=== PATIENT | female | born 1950 | race Caucasian/White ===

== ENCOUNTER → 2019-02-23 12:00 | Outpatient (CLI) | payer OTHER, SELFPAY | PROVIDERS: PCP Student in an Organized Health Care Education/Training Program; Visit Provider Student in an Organized Health Care Education/Training Program | DX: Z12.31 Encounter for screening mammogram for malignant neoplasm of breast (principal); Z53.9 Procedure and treatment not carried out, unspecified reason ==

== ENCOUNTER → 2019-03-17 11:53 | Outpatient (CLI) | payer OTHER, SELFPAY ==
--- NOTE | 2019-03-17 | DI.MG.S_ITS ---
BILATERAL DIGITAL SCREENING MAMMOGRAM 3D/2D WITH CAD: 03/17/2019 CLINICAL: Routine screening. Comparison is made to exams dated: 06/09/2017 mammogram, 02/22/2015 mammogram - [facility], and 11/30/2012 mammogram - [facility]. The tissue of both breasts is heterogeneously dense. This may lower the sensitivity of mammography. Current study was also evaluated with a Computer Aided Detection (CAD) system. No significant masses, calcifications, or other findings are seen in either breast. There has been no significant interval change. IMPRESSION: NEGATIVE There is no mammographic evidence of malignancy. A 1 year screening mammogram is recommended. This exam was interpreted at Station ID: [id number]. NOTE: For mammograms, a report in lay terms will be sent to the patient. Approximately 15% of breast malignancies will not be visualized mammographically. In the management of a palpable breast mass, a negative mammogram must not discourage biopsy of a clinically suspicious lesion. Electronically Signed By: Catarina yoo/radha:03/17/2019 15:01:41 copy to: CORA BAILEY letter sent: Normal Exam ACR BI-RADS Category 1: Negative 3341F
== END ==
PROVIDERS: PCP Student in an Organized Health Care Education/Training Program; Visit Provider Student in an Organized Health Care Education/Training Program
DX: Z12.31 Encounter for screening mammogram for malignant neoplasm of breast (principal)
CPT/HCPCS: 77063; 77067

== ENCOUNTER → 2019-09-29 14:03 | Outpatient (CLI) | payer OTHER, SELFPAY | PROVIDERS: PCP Student in an Organized Health Care Education/Training Program; Referring Provider Student in an Organized Health Care Education/Training Program; Visit Provider Student in an Organized Health Care Education/Training Program | DX: M85.852 Other specified disorders of bone density and structure, left thigh (principal); Z78.0 Asymptomatic menopausal state | CPT/HCPCS: 77080 ==

== ENCOUNTER → 2020-04-05 15:43 | Outpatient (CLI) | payer OTHER, SELFPAY ==
--- NOTE | 2020-04-05 | DI.MG.S_ITS ---
BILATERAL DIGITAL SCREENING MAMMOGRAM 3D/2D WITH CAD: 04/05/2020 CLINICAL: Routine screening. Comparison is made to exams dated: 03/17/2019 mammogram, 06/09/2017 mammogram, and 02/22/2015 mammogram - [facility]. The tissue of both breasts is heterogeneously dense. This may lower the sensitivity of mammography. Current study was also evaluated with a Computer Aided Detection (CAD) system. No significant masses, calcifications, or other findings are seen in either breast. There has been no significant interval change. IMPRESSION: NEGATIVE There is no mammographic evidence of malignancy. A 1 year screening mammogram is recommended. This exam was interpreted at Station ID: [id number]. NOTE: For mammograms, a report in lay terms will be sent to the patient. Approximately 15% of breast malignancies will not be visualized mammographically. In the management of a palpable breast mass, a negative mammogram must not discourage biopsy of a clinically suspicious lesion. Electronically Signed By: Huy Espino M.D., jr/radha:04/05/2020 16:59:18 copy to: CORA BAILEY letter sent: Normal Exam ACR BI-RADS Category 1: Negative 3341F
== END ==
PROVIDERS: PCP Student in an Organized Health Care Education/Training Program; Referring Provider Student in an Organized Health Care Education/Training Program; Visit Provider Student in an Organized Health Care Education/Training Program
DX: Z12.31 Encounter for screening mammogram for malignant neoplasm of breast (principal)
CPT/HCPCS: 77063; 77067

== ENCOUNTER → 2021-07-17 15:36 | Outpatient (CLI) | payer OTHER, SELFPAY ==
--- NOTE | 2021-07-17 15:38 | DI.MG.S_ITS ---
BILATERAL DIGITAL SCREENING MAMMOGRAM 3D/2D WITH CAD: 07/17/2021 CLINICAL: Routine screening. Comparison is made to exams dated: 04/05/2020 mammogram, 03/17/2019 mammogram, and 06/09/2017 mammogram - [facility]. The tissue of both breasts is heterogeneously dense. This may lower the sensitivity of mammography. Current study was also evaluated with a Computer Aided Detection (CAD) system. No significant masses, calcifications, or other findings are seen in either breast. There has been no significant interval change. IMPRESSION: NEGATIVE There is no mammographic evidence of malignancy. A 1 year screening mammogram is recommended. This exam was interpreted at Station ID: [id number]. NOTE: For mammograms, a report in lay terms will be sent to the patient. Approximately 15% of breast malignancies will not be visualized mammographically. In the management of a palpable breast mass, a negative mammogram must not discourage biopsy of a clinically suspicious lesion. Electronically Signed By: Catarina yoo/radha:07/18/2021 12:21:29 copy to: CORA BAILEY letter sent: Normal Exam ACR BI-RADS Category 1: Negative 3341F
== END ==
PROVIDERS: PCP Student in an Organized Health Care Education/Training Program; Referring Provider Student in an Organized Health Care Education/Training Program; Visit Provider Student in an Organized Health Care Education/Training Program
DX: Z12.31 Encounter for screening mammogram for malignant neoplasm of breast (principal)
CPT/HCPCS: 77063; 77067

== ENCOUNTER → 2021-08-15 11:45 | Outpatient (CLI) | payer OTHER, SELFPAY ==
[2021-08-15 12:36] LABS: COVID19 -Nasal RAPID Negative (Negative)
== END ==
PROVIDERS: PCP Student in an Organized Health Care Education/Training Program; Referring Provider Student in an Organized Health Care Education/Training Program; Visit Provider Student in an Organized Health Care Education/Training Program
DX: Z20.822 Contact with and (suspected) exposure to COVID-19 (principal)
CPT/HCPCS: 87635; C9803

== ENCOUNTER 2021-08-17 11:50 | Day surgery (SDC) | payer OTHER, SELFPAY ==
--- NOTE | 2021-08-17 | PATH_ITS ---
[facility] Accession Number: [id number] . 01 Material submitted: . sigmoid colon - SIGMOID COLON POLYP . 01 Diagnosis: Sigmoid Colon, Polyp, Biopsy: Hyperplastic polyp. Additional levels were examined. MRV 08/23/2021 1621 Local . 01 Electronically signed: . Jessica Felder MD, Pathologist NPI- [id number] . 01 Gross description: . SIGMOID COLON POLYP: Received in formalin are 2 fragment(s) of pedraza, soft tissue measuring 0.1 x 0.1 x 0.1 cm to 0.3 x 0.2 x 0.2 cm submitted entirely in 1 cassette(s) /MICHAEL 08/20/2021 1910 Local . 01 Pathologist provided ICD-10: K63.5 . 01 CPT . 420410 Specimen Comment: A courtesy copy of this report has been sent to [phone] Performed at: 01 [facility] [address] [place] [address] [address], [place], [place] [id number] MD Robert Valentin MD Phone: [phone]
[2021-08-17 12:01] VITALS: BP 150/88; PULSE 77; RESP 20; TEMP 36.4; O2SAT 98; BMI 25.7
--- NOTE | 2021-08-17 12:02 | P.HP_ITS ---
History of Present Illness History of Present Illness Date Patient Seen: 08/17/21 Chief complaint: SCREENING COLONOSCOPY Narrative: 70 year old female comes in today for consideration of a screening colonoscopy. Last colonoscopy in 2005, indicated for family history of colon cancer and colon polyps. However, patient reports that it is more of a family history of colitis rather than colon cancer or polyps. Findings showed a rectal polyp and mild diverticulosis in the ascending colon. Pathology not available at time of dictation. There have been no lower GI symptoms suggesting disease such as change in bowel habits, bleeding, abdominal pain or anemia. Overall health issues have been stable, including no major cardiac events for at least 6 weeks. PCP: Dr. Locke Past Medical History: HYPERLIPIDEMIA Herpes simplex Tinnitus OSTEOPENIA History of colon polyps Past Surgical History: Tonsillectomy Foot surgery Colonoscopy, 2005 Family History: Colitis Social History: Marital Status: Children: Ester(1971), Bar(1977) Occupation: Retired from [employer] Private Household Members: Jesus Brannon() Meds Home Medications and Allergies Allergies Allergy/AdvReac Type Severity Reaction Status Date / Time blue cheese Allergy Unknown Uncoded 08/17/21 12:01 Review of Systems Review of Systems Narrative: All remaining ROS were reviewed and negative except as addressed. Exam Narrative Exam Narrative: GENERAL: Alert and oriented, appearing stated age and in no acute distress. HEENT: Head normocephalic/atraumatic. Extraocular movements intact. LUNGS: Clear to ausculation bilaterally, no wheezes, rhonchi or rales. CV: Normal S1 and S2 with regular rate and rhythm, no audible murmurs, rubs or gallops. ABDOMEN: Soft, non-tender, non-distended, no organomegaly. Positive bowel sounds. EXTREMITIES: No clubbing, cyanosis, or edema. NEURO: Cranial nerves II through XII grossly intact, no focal deficits. PSYCH: Alert and oriented x 3. SKIN: No concerning lesions. Assessment & Plan Assessment & Plan narrative: 1. History of colon polyps 2. Screening for colon cancer Plan for colonoscopy. The nature and character of the procedure as well as anticipated results were discussed. The possibility of not completing the procedure was also discussed. Possible complications including aspiration pneumonia, bleeding, perforation and reaction to medications either for sedation or preparation and missed lesions were discussed. Questions were answered and proceeding to the colonoscopy was elected. Informed consent signed.
--- NOTE | 2021-08-17 12:11 | PM.OP.COLON ---
Procedure Notes SCOAP/Timeout: 1:12 p.m. Procedure in detail: ENDOSCOPIST: Yaima Locke MD Sedation RN: Roselyn Vázquez RN Sedation start time: 1:13 p.m. Sedation end time: 1:36 p.m. PROCEDURE: Colonoscopy with cold biopsy INDICATIONS: 1. History of colon polyps 2. Family history of colon cancer colon polyps 3. Screening for colon cancer MEDICATION: Levsin 0.125 mg sublingual, incremental doses of Versed and fentanyl until appropriate level sedation achieved. ASA CLASS: 2 CECAL WITHDRAWAL TIME: 9 minutes COMPLICATIONS: None. EXTENT OF PROCEDURE: Cecum. QUALITY OF PREP: Good with portions of liquid stool. PROCEDURE: Prior to insertion of the colonoscope, a digital rectal examination was accomplished with circumferential palpation of the distal rectal mucosa without significant findings being noted. The high-definition pediatric colonoscope was passed into the rectum in the usual fashion and advanced over to the cecum without difficulty. The ileocecal valve, appendiceal stoma, and medial wall all could be inspected and no abnormalities were seen. ASCENDING COLON: As the colonoscope was withdrawn, care was taken to expose and inspect the haustral folds and minor diverticulosis seen. HEPATIC FLEXURE: Normal, no polyps, diverticula or other abnormalities. TRANSVERSE COLON: Normal, no polyps, diverticula or other abnormalities. DESCENDING COLON: Normal, no polyps, diverticula or other abnormalities. SIGMOID COLON: A 3 mm polyp was seen and removed with cold biopsy forceps. Otherwise, no diverticula or other abnormalities. RECTUM: Normal. J maneuver was produced. There was no significant perianal disease. The J maneuver was broken. The remainder of the rectum was inspected and there was minus external hemorrhoid disease. The scope was withdrawn. IMPRESSION: 1. Sigmoid polyp x1, 3 mm, removed with cold biopsy forceps 2. Diverticulosis, ascending PLAN: 1. Follow-up in clinic status post pathology results. The possibility of a missed lesion including a malignancy has been discussed with the patient previously. Potential alarm symptoms have been discussed and should be reported immediately.
[2021-08-17] MEDS: LACTATED RINGERS 1,000 ML 200 ML IV (12:16)
[2021-08-17] MEDS: HYOSCYAMINE 0.125 MG TABLET PO (12:20)
[2021-08-17] MEDS: fentaNYL 250 MCG/5 ML INJ 150 MCG IV (13:37)
[2021-08-17] MEDS: MIDAZOLAM 5 MG/5 ML VIAL IV (13:38)
[2021-08-17 13:42] VITALS: BP 114/76; PULSE 66; RESP 13; TEMP 36.3; O2SAT 95
[2021-08-17 13:47] VITALS: BP 123/81; PULSE 67; RESP 14; O2SAT 95
[2021-08-17 13:52] VITALS: BP 124/80; PULSE 59; RESP 12; O2SAT 93
[2021-08-17 13:57] VITALS: BP 132/82; PULSE 60; RESP 14; TEMP 36.2; O2SAT 95
[2021-08-17 14:30] VITALS: BP 122/86; PULSE 62; RESP 16; TEMP 36.7; O2SAT 96
== END 2021-08-17 14:46 | disposition home or self-care (01) ==
PROVIDERS: PCP Student in an Organized Health Care Education/Training Program; Referring Provider Student in an Organized Health Care Education/Training Program; Visit Provider Student in an Organized Health Care Education/Training Program
PROC: 0DJD8ZZ Inspection of Lower Intestinal Tract, Via Natural or Artificial Opening Endoscopic (ICD-10-PCS; CPT 45378; principal; 2021-08-17 13:00)
DX: Z12.11 Encounter for screening for malignant neoplasm of colon (principal); Z86.010 Personal history of colon polyps; Z80.0 Family history of malignant neoplasm of digestive organs; K57.30 Diverticulosis of large intestine without perforation or abscess without bleeding; K63.5 Polyp of colon
CPT/HCPCS: 45380; J2250; J3010

== ENCOUNTER → 2021-09-17 14:38 | Outpatient (CLI) | payer OTHER, SELFPAY | PROVIDERS: PCP Student in an Organized Health Care Education/Training Program; Referring Provider Internal Medicine; Visit Provider Internal Medicine | DX: M85.852 Other specified disorders of bone density and structure, left thigh (principal); M85.851 Other specified disorders of bone density and structure, right thigh; Z78.0 Asymptomatic menopausal state | CPT/HCPCS: 77080 ==

== ENCOUNTER → 2022-07-25 13:18 | Outpatient (CLI) | payer OTHER, SELFPAY ==
--- NOTE | 2022-07-25 | DI.MG.S_ITS ---
BILATERAL DIGITAL SCREENING MAMMOGRAM 3D/2D WITH CAD: 07/25/2022 CLINICAL: Routine screening. Comparison is made to exams dated: 07/17/2021 mammogram, 04/05/2020 mammogram, and 03/17/2019 mammogram - [facility]. Both breasts are heterogeneously dense, which may obscure small masses (category c / 51-75% glandular tissue). Current study was also evaluated with a Computer Aided Detection (CAD) system. No significant masses, calcifications, or other findings are seen in either breast. There has been no significant interval change. IMPRESSION: NEGATIVE There is no mammographic evidence of malignancy. A 1 year screening mammogram is recommended. Based on the Tyrer Cuzick model (a risk assessment model) the patient's lifetime risk is 5.7% and her 10 year risk is 3.3%. According to the ACR, ACS, and NCCN guidelines, an annual breast MRI exam along with mammogram is recommended if the patient's lifetime risk is 20% or greater. This exam was interpreted at Station ID: [id number]. NOTE: For mammograms, a report in lay terms will be sent to the patient. Approximately 15% of breast malignancies will not be visualized mammographically. In the management of a palpable breast mass, a negative mammogram must not discourage biopsy of a clinically suspicious lesion. Electronically Signed By: Mart ledesma/radha:07/25/2022 14:03:34 copy to: CORA BAILEY letter sent: Normal Exam ACR BI-RADS Category 1: Negative 3341F
== END ==
PROVIDERS: PCP Student in an Organized Health Care Education/Training Program; Referring Provider Internal Medicine; Visit Provider Internal Medicine
DX: Z12.31 Encounter for screening mammogram for malignant neoplasm of breast (principal)
CPT/HCPCS: 77063; 77067

== ENCOUNTER → 2023-03-22 14:42 | Outpatient (CLI) | payer OTHER, SELFPAY | PROVIDERS: PCP Student in an Organized Health Care Education/Training Program; Visit Provider Nurse Practitioner Family | DX: N39.0 Urinary tract infection, site not specified (principal) | CPT/HCPCS: 87077; 87086; 87186 ==

== ENCOUNTER → 2023-07-31 13:15 | Outpatient (CLI) | payer OTHER, SELFPAY ==
--- NOTE | 2023-07-31 13:16 | DI.MG.S_ITS ---
BILATERAL DIGITAL SCREENING MAMMOGRAM 3D/2D WITH CAD: 07/31/2023 CLINICAL: Routine screening. Comparison is made to exams dated: 07/25/2022 mammogram, 07/17/2021 mammogram, and 04/05/2020 mammogram - [facility]. Both breasts are heterogeneously dense, which may obscure small masses (category c / 51-75% glandular tissue). Current study was also evaluated with a Computer Aided Detection (CAD) system. No significant masses, calcifications, or other findings are seen in either breast. There has been no significant interval change. IMPRESSION: NEGATIVE There is no mammographic evidence of malignancy. A 1 year screening mammogram is recommended. Based on the Tyrer Cuzick model (a risk assessment model) the patient's lifetime risk is 5.4% and her 10 year risk is 3.4%. According to the ACR, ACS, and NCCN guidelines, an annual breast MRI exam along with mammogram is recommended if the patient's lifetime risk is 20% or greater. This exam was interpreted at Station ID: [id number]. NOTE: For mammograms, a report in lay terms will be sent to the patient. Approximately 15% of breast malignancies will not be visualized mammographically. In the management of a palpable breast mass, a negative mammogram must not discourage biopsy of a clinically suspicious lesion. Electronically Signed By: Roberta Hoover M.D., Ph.D. cornelia/radha:07/31/2023 15:40:20 copy to: CORA BAILEY letter sent: Normal Exam ACR BI-RADS Category 1: Negative 3341F
== END ==
LOC: MAMMO 13:15
PROVIDERS: PCP Internal Medicine; Referring Provider Internal Medicine; Visit Provider Internal Medicine
DX: Z12.31 Encounter for screening mammogram for malignant neoplasm of breast (principal); R92.333 Mammographic heterogeneous density, bilateral breasts
CPT/HCPCS: 77063; 77067

== ENCOUNTER → 2024-01-14 14:17 | Outpatient (CLI) | payer OTHER, SELFPAY ==
--- NOTE | 2024-01-14 14:18 | DI.RAD.S_ITS ---
PROCEDURE: XR DEXA AXIAL SKELETON INDICATIONS: ASYMPTOMATIC MENOPAUSAL STATE COMPARISON: [facility], CR, XR DEXA AXIAL SKELETON, 09/17/2021, 14:53. FINDINGS: Lumbar Spine: Bone mineral density 0.941 g/cm2, T score -1.0, compared to -0.7. Left Hip: Bone mineral density 0.869 g/cm2, T score -0.6, compared to -0.7. Left Femoral Neck: Bone mineral density 0.707 g/cm2, T score -1.3, compared to -1.2. Right Hip: Bone mineral density 0.883 g/cm2, T score -0.5, compared to -0.1. Right Femoral Neck: Bone mineral density 0.738 g/cm2, T score -1.0, compared to -1.2. Fracture Risk Calculation (when applicable): 10-year fracture risk of a major osteoporotic fracture 9 % and of a hip fracture 1%. (T score greater or equal to -1.0 to: NORMAL) (T score from -1.1 to -2.4: OSTEOPENIA) (T score less than or equal to -2.5: OSTEOPOROSIS) IMPRESSION: Overall appearance of minimal osteopenia within the left femoral neck relatively stable. Other areas demonstrate minimal progressive bone mineral density loss although still remaining within normal limits. Mild improved bone mineral density in the right femoral neck now within normal limits compared to previous minimal osteopenia. Follow-up guidelines as follows: Osteoporosis: Consider a repeat DEXA and Vertebral Fracture Assessment (VFA) exam in 2 years or sooner if medically necessary, to reassess this patient's status. Osteopenia: Consider a repeat DEXA in 2-3 years to reassess this patient's status, or if there is a new clinical indication. Normal: Consider a repeat DEXA in 5 years or sooner, or if there is a new clinical indication. All treatment decisions require clinical judgment and consideration of individual patient factors, including patient preferences, comorbidities, previous drug use, risk factors not captured in the FRAX model (e.g., frailty, falls, vitamin D deficiency, increased bone turnover, interval significant decline in bone density ) and possible under- or over-estimation of fracture risk by FRAX. In addition, the NOF Guide recommends that FDA-approved medical therapies be considered in postmenopausal women and men age >= 50 years with a: * Hip or vertebral (clinical or morphometric) fracture * T-score of <=-2.5 at the spine or hip * Ten-year fracture probability by FRAX of >= 3% for hip fracture or >=20% for major osteoporotic fracture. People with diagnosed cases of osteoporosis or at high risk for fracture should have regular bone mineral density tests. For patients eligible for Medicare, routine testing is allowed once every 2 years. The testing frequency can be increased to one year for patients who have rapidly progressing disease, those who are receiving or discontinuing medical therapy to restore bone mass, or have additional risk factors. Dictated by: Traci De León M.D. on 01/15/2024 at 11:40 Approved by: Traci De León M.D. on 01/15/2024 at 11:42
== END ==
PROVIDERS: PCP Internal Medicine; Referring Provider Internal Medicine; Visit Provider Internal Medicine
DX: Z78.0 Asymptomatic menopausal state (principal); M85.852 Other specified disorders of bone density and structure, left thigh
CPT/HCPCS: 77080

== ENCOUNTER 2024-06-03 10:10 | Observation (INO) | payer OTHER, SELFPAY ==
[2024-06-03] VITALS (13 sets, daily range): BP systolic 156–201; BP diastolic 74–111; PULSE 61–93; RESP 14–24; TEMP 36.3–36.8; O2SAT 95–99; BMI 27.3; BMI 29.0
--- NOTE | 2024-06-03 10:14 | DI.RAD.S_ITS ---
PROCEDURE: XR CHEST 1V INDICATIONS: chest pain TECHNIQUE: One view of the chest was acquired. COMPARISON: None. FINDINGS: Surgical changes and devices: None. Lungs and pleura: Lungs are clear. No pleural effusions or pneumothorax. Mediastinum: Mediastinal contours appear normal. Heart size is normal. Bones and chest wall: No suspicious bony lesions. Overlying soft tissues appear unremarkable. IMPRESSION: No acute cardiopulmonary abnormality is seen. Dictated by: Tico West M.D. on 06/03/2024 at 10:47 Approved by: Tico West M.D. on 06/03/2024 at 10:48
--- NOTE | 2024-06-03 10:17 | EKG_ITS ---
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
[2024-06-03 11:03] LABS: PTT Partial Thromboplastin Tim 35 SECONDS (25.1-36.5)
[2024-06-03 11:07] LABS: Add Manual Diff / Slide Review NO; Basophils Absolute Auto 100 /uL (0-100); Basophils Percent Auto 1.2 % (0-2); Eosinophils Absolute Auto 100 /uL (0-450); Eosinophils Percent Auto 2.2 % (2-4); Hematocrit 43.2 % (36-46); Hemoglobin 14.8 g/dL (12.0-16.0); Lymphocytes Absolute Auto 1900 /uL (1100-4500); Lymphocytes Percent Auto 40.5 % (25-40); Mean Corpuscular HGB Conc 34.2 % (30-36); Mean Corpuscular Hemoglobin 32.1 PG (26-34); Mean Corpuscular Volume 93.7 fL (80-100); Monocytes Absolute Auto 400 /uL (0-900); Monocytes Percent Auto 7.7 % (3-14); Neutrophils Absolute Auto 2300 /uL (1500-7000); Neutrophils Percent Auto 48.4 % (50-75); Platelet Count 235 X10^3/uL (150-400); Red Blood Cell Count 4.61 X10^6/uL (4.0-5.2); Red Cell Distribution Width 13.8 % (11.6-14.8); White Blood Cell Count 4.7 X10^3/uL (4.5-11.0)
[2024-06-03 11:23] LABS: Alanine Aminotransferase 33 IU/L (<35); Albumin 4.4 g/dL (3.5-5.0); Albumin Globulin Ratio 1.6 (1.0-2.8); Alkaline Phosphatase 53 U/L (38-126); Aspartate Aminotransferase 32 IU/L (14-36); BUN Creatinine Ratio 23.3 (6-22); Bilirubin Total 0.9 mg/dL (0.2-1.3); Blood Urea Nitrogen 17 mg/dL (7-17); Calcium 10.1 mg/dL (8.4-10.2); Carbon Dioxide 23 mmol/L (22-32); Chloride 106 mmol/L (98-107); Creatine Kinase 61 U/L (30-135); Estimated Glomerular Filt Rate > 60 mL/min (>60); Globulin 2.7 g/dL (1.7-4.1); Glucose 114 mg/dL (80-110); HEMOLYSIS < 15 (0-50); Lipase 165 U/L (23-300); Magnesium 2.1 mg/dL (1.6-2.3); Potassium 4.2 mmol/L (3.4-5.1); Sodium 136 mmol/L (137-145); Total Protein 7.1 g/dL (6.3-8.2)
[2024-06-03 11:34] LABS: NT-proBNP (BNP-Adult 18+) 87 pg/mL (<125); Troponin I < 0.012 ng/mL (0.01-0.034)
[2024-06-03] MEDS: ASPIRIN 81 MG CHEW TAB 324 MG PO (12:30)
[2024-06-03 13:32] LABS: Troponin I < 0.012 ng/mL (0.01-0.034)
--- NOTE | 2024-06-03 15:19 | ED_ITS ---
HPI - Chest Pain General Chief Complaint: Chest Pain Stated Complaint: Per patients feels like she's having aheart attack Time Seen by Provider: 06/03/24 12:35 History of Present Illness HPI narrative: This is a 73-year-old female under the primary care of Darlyn Oneil. Patient comes in today with chest pain. From 7:00 a.m. to noon she had substernal chest pain that is described as burning was located in the midsternum with radiation to the neck. It was associated with some shortness of breath diaphoresis she did not have nausea or vomiting. She did notice it seemed to get worse when she was up moving around. Its onset was at rest. Patient's pain has resolved spontaneously. Her father had coronary disease, she does not smoke she does not have a history of diabetes elevated cholesterol or hypertension and has no known history of coronary disease. She reports she was feeling well otherwise. She has had infrequent similar episodes in the past but has never seen a doctor for it she does not have a history of exertional chest pain. Related Data Previous Rx's Medication Instructions Recorded phenazopyridine 200 mg tablet 200 mg PO TID 6 doses #6 tabs 03/22/23 (Pyridium) Allergies Allergy/AdvReac Type Severity Reaction Status Date / Time jalepeno Allergy Intermediate Rash Uncoded 03/22/23 14:49 blue cheese Allergy Unknown Uncoded 03/22/23 14:49 Patient History Social History household members: spouse Smoking Status: Never smoker Smoking Status: Never smoker alcohol intake frequency: 0-2 drinks per day Exam Initial Vital Signs Initial Vital Signs: Vital Signs Pulse Rate 83 06/03/24 10:17 Respiratory Rate 16 06/03/24 10:17 Pulse Oximetry 98 06/03/24 10:17 Const General: cooperative and No acute distress HENIN Head: normocephalic and atraumatic Eyes Pupils: PERRL EOM: EOM intact bilaterally Neck Neck: No JVD Resp Effort & Inspection: normal respiratory effort and able to speak in complete sentences Cardio Rate: regular rate Rhythm: regular rhythm Heart Sounds: no murmurs GI Inspection: normal to inspection Palpation: soft Skin General: warm Neuro General: patient alert, patient oriented x3 and moves all extremities Course Orders Ordered: ED Orders 06/03/24 10:14 XR chest 1V Stat EKG-12 Lead Stat 06/03/24 10:36 Complete Blood Count AUTO DIFF Stat Comprehensive Metabolic Panel Stat Lipase Stat Magnesium Stat NT-proBNP (BNP-Adult 18+) Stat PTT Partial Thromboplastin Arnel Stat Prothrombin Time INR Stat Troponin & CK Cardiac Panel Stat 06/03/24 12:56 Troponin I Stat Discontinued Medications Aspirin (Aspirin 81 Mg Chew Tab) 324 mg PO NOW ONE Stop: 06/03/24 10:15 Last Admin: 06/03/24 12:30 Dose: 324 mg Documented By: ABRAHAN Consultations Consultation #1: D/W Radha STRAUSS she will arrange for the patient to be admitted by the appropriate provider and her group, accepts admission Vital Signs Vital signs: Vital Signs - 8 hr 06/03/24 10:17 06/03/24 10:20 06/03/24 10:30 Temperature 98.3 F Pulse Rate 83 93 H 74 Respiratory Rate 16 18 Blood Pressure 201/111 H Pulse Oximetry 98 98 99 Oxygen Delivery Method Room Air 06/03/24 10:30 06/03/24 11:00 06/03/24 11:00 Temperature Pulse Rate 61 Respiratory Rate 18 Blood Pressure 195/94 H 183/85 H Pulse Oximetry 97 Oxygen Delivery Method Room Air 06/03/24 11:30 06/03/24 11:30 06/03/24 12:00 Temperature Pulse Rate 62 61 Respiratory Rate 14 16 Blood Pressure 166/79 H Pulse Oximetry 96 96 Oxygen Delivery Method 06/03/24 12:00 06/03/24 12:22 06/03/24 12:22 Temperature Pulse Rate 63 Respiratory Rate 22 Blood Pressure 160/74 H 190/85 H Pulse Oximetry 95 Oxygen Delivery Method 06/03/24 12:30 06/03/24 12:30 06/03/24 13:00 Temperature Pulse Rate 65 Respiratory Rate 22 Blood Pressure 162/83 H 174/84 H Pulse Oximetry 96 Oxygen Delivery Method 06/03/24 13:00 06/03/24 13:30 06/03/24 13:30 Temperature Pulse Rate 63 68 Respiratory Rate 22 18 Blood Pressure 156/83 H Pulse Oximetry 97 95 Oxygen Delivery Method 06/03/24 14:00 06/03/24 14:13 06/03/24 14:13 Temperature Pulse Rate 68 65 Respiratory Rate 22 24 Blood Pressure 180/81 H Pulse Oximetry 97 96 Oxygen Delivery Method MDM - Chest Pain Lab Data Lab results narrative: Troponins are normal x2 CBC with diff and CMP are unremarkable 06/03/24 10:36 06/03/24 10:36 Labs: Lab Results 06/03/24 06/03/24 Range/Units 10:36 12:56 WBC 4.7 (4.5-11.0) X10^3/uL RBC 4.61 (4.0-5.2) X10^6/uL Hgb 14.8 (12.0-16.0) g/dL Hct 43.2 (36-46) % MCV 93.7 (80-100) fL MCH 32.1 (26-34) PG MCHC 34.2 (30-36) % RDW 13.8 (11.6-14.8) % Plt Count 235 (150-400) X10^3/uL Neut % (Auto) 48.4 L (50-75) % Lymph % (Auto) 40.5 H (25-40) % [place] % (Auto) 7.7 (3-14) % Eos % (Auto) 2.2 (2-4) % Baso % (Auto) 1.2 (0-2) % Neut # (Auto) 2300 (6716-8757) /uL Lymph # (Auto) 1900 (3688-4138) /uL [place] # (Auto) 400 (0-900) /uL Eos # (Auto) 100 (0-450) /uL Baso # (Auto) 100 (0-100) /uL PT 11.0 (9.4-12.5) SECONDS INR 1.0 (0.9-1.3) APTT 35 (25.1-36.5) SECONDS Sodium 136 L (137-145) mmol/L Potassium 4.2 (3.4-5.1) mmol/L Chloride 106 (98-107) mmol/L Carbon Dioxide 23 (22-32) mmol/L BUN 17 (7-17) mg/dL Creatinine 0.73 (0.52-1.04) mg/dL Estimated GFR > 60 (>60) mL/min BUN/Creatinine Ratio 23.3 H (6-22) Glucose 114 H (80-110) mg/dL Calcium 10.1 (8.4-10.2) mg/dL Magnesium 2.1 (1.6-2.3) mg/dL Total Bilirubin 0.9 (0.2-1.3) mg/dL AST 32 (14-36) IU/L ALT 33 (<35) IU/L Alkaline Phosphatase 53 (38-126) U/L Total Creatine Kinase 61 (30-135) U/L Troponin I < 0.012 < 0.012 (0.01-0.034) ng/mL NT-Pro-B Natriuret Pep 87 (<125) pg/mL Total Protein 7.1 (6.3-8.2) g/dL Albumin 4.4 (3.5-5.0) g/dL Globulin 2.7 (1.7-4.1) g/dL Albumin/Globulin Ratio 1.6 (1.0-2.8) Lipase 165 (23-300) U/L Imaging Data Chest x-ray: My Impression: Independent review of chest x-ray, no acute findings Radiologist's Impression: Radiology report reviewed, no acute abnormality ECG Data Interpretation: ECG shows normal sinus rhythm normal rate no ST elevation no previous infarction MDM Narrative Medical decision making narrative: Based on what I interpret to be a moderately suspicious story, normal EKG, normal troponin age of 73 and 1 cardiac risk factors her heart score is 4. This was discussed with the patient she is agreeable to admission. Discharge Plan Departure Patient Disposition: Admitted as Observation Clinical Impression: Chest pain Qualifiers: Chest pain type: unspecified Qualified Code(s): R07.9 - Chest pain, unspecified
--- NOTE | 2024-06-03 16:07 | PM.HP.1 ---
History of Present Illness History of Present Illness Date Patient Seen: 06/03/24 Time Patient Seen: 16:07 Date of Onset of Symptoms: 06/03/24 Chief complaint: Per patients feels like she's having aheart attack Narrative: CC: Chest pain rule out ACS Patient awoke this morning with what felt like scary painful heartburn seemed to worsen throughout the mornings are getting lightheaded and clammy so she had her bring her to the ER where initial cardiac workup was negative she does note her father has a history of heart attack she now feels a little bit better she does have elevated blood pressure without a history of hypertension she does say she has white coat syndrome she has not had a whole lot 8 today has been up to pee since getting to the ER at around noon quite concerned of this being possible cardiac. PFSH Social History household members: spouse Smoking Status: Never smoker Meds Home Medications and Allergies Home Medications Medication Instructions Recorded Confirmed Type phenazopyridine 200 mg tablet 200 mg PO TID 6 doses #6 tabs 03/22/23 03/22/23 Rx (Pyridium) Allergies Allergy/AdvReac Type Severity Reaction Status Date / Time jalepeno Allergy Intermediate Rash Uncoded 03/22/23 14:49 blue cheese Allergy Unknown Uncoded 03/22/23 14:49 Review of Systems Review of Systems Narrative: All systems reviewed and negative except as otherwise documented in HPI Exam Vital Signs (past 8 hours): - 06/03/24 10:17 06/03/24 10:20 06/03/24 10:30 Temperature 98.3 F Pulse Rate 83 93 H 74 Respiratory Rate 16 18 Blood Pressure 201/111 H Pulse Oximetry 98 98 99 Oxygen Delivery Method Room Air 06/03/24 10:30 06/03/24 11:00 06/03/24 11:00 Temperature Pulse Rate 61 Respiratory Rate 18 Blood Pressure 195/94 H 183/85 H Pulse Oximetry 97 Oxygen Delivery Method Room Air 06/03/24 11:30 06/03/24 11:30 06/03/24 12:00 Temperature Pulse Rate 62 61 Respiratory Rate 14 16 Blood Pressure 166/79 H Pulse Oximetry 96 96 Oxygen Delivery Method 06/03/24 12:00 06/03/24 12:22 06/03/24 12:22 Temperature Pulse Rate 63 Respiratory Rate 22 Blood Pressure 160/74 H 190/85 H Pulse Oximetry 95 Oxygen Delivery Method 06/03/24 12:30 06/03/24 12:30 06/03/24 13:00 Temperature Pulse Rate 65 Respiratory Rate 22 Blood Pressure 162/83 H 174/84 H Pulse Oximetry 96 Oxygen Delivery Method 06/03/24 13:00 06/03/24 13:30 06/03/24 13:30 Temperature Pulse Rate 63 68 Respiratory Rate 22 18 Blood Pressure 156/83 H Pulse Oximetry 97 95 Oxygen Delivery Method 06/03/24 14:00 06/03/24 14:13 06/03/24 14:13 Temperature Pulse Rate 68 65 Respiratory Rate 22 24 Blood Pressure 180/81 H Pulse Oximetry 97 96 Oxygen Delivery Method Oxygen Delivery Method Room Air Narrative Exam Narrative: Cheerful alert elder resting in hospital bed Const Other: Well-nourished well-developed HENMT Other: Normocephalic atraumatic Eyes Other: Extraocular movements intact Resp Other: Grossly clear to auscultation bilaterally moving air well speaking in complete sentences on room air Cardio Other: Regular rate and rhythm S1-S2 no pedal edema GI Other: Soft nontender active bowel sounds Neuro Other: Alert awake oriented fully conversant moving all limbs Objective Labs 06/03/24 10:36 06/03/24 10:36 Labs: Laboratory Results - last 24 hr 06/03/24 06/03/24 10:36 12:56 WBC 4.7 RBC 4.61 Hgb 14.8 Hct 43.2 MCV 93.7 MCH 32.1 MCHC 34.2 RDW 13.8 Plt Count 235 Neut % (Auto) 48.4 L Lymph % (Auto) 40.5 H [place] % (Auto) 7.7 Eos % (Auto) 2.2 Baso % (Auto) 1.2 Neut # (Auto) 2300 Lymph # (Auto) 1900 [place] # (Auto) 400 Eos # (Auto) 100 Baso # (Auto) 100 PT 11.0 INR 1.0 APTT 35 Sodium 136 L Potassium 4.2 Chloride 106 Carbon Dioxide 23 BUN 17 Creatinine 0.73 Estimated GFR > 60 BUN/Creatinine Ratio 23.3 H Glucose 114 H Calcium 10.1 Magnesium 2.1 Total Bilirubin 0.9 AST 32 ALT 33 Alkaline Phosphatase 53 Total Creatine Kinase 61 Troponin I < 0.012 < 0.012 NT-Pro-B Natriuret Pep 87 Total Protein 7.1 Albumin 4.4 Globulin 2.7 Albumin/Globulin Ratio 1.6 Lipase 165 Assessment & Plan Assessment & Plan narrative: # chest pain rule out ACS Initial troponins negative we will continue to trend out cardiac panel through the evening Continue youth nutritional monitor, provide ppi #Elevated blood pressure without diagnosis of hypertension I do think a degree of permissive hypertension is in order under the circumstances will provide as needed hydralazine dispo: Admit obsv with youth nutritional monitor, trend trops Code status full Diet heart healthy Medical decision maker Jesus Time-Based Coding :: [TOTAL MINUTES] spent with patient and on the chart (including review of chart, obtaining history, exam, reviewing outside data, placing orders, documenting exam and treatment plan, and counseling patient) on [DATE].
--- NOTE | 2024-06-03 19:46 | CM.DANOTE ---
ED COOLER CONVEYOR LOADER DCP Assessment Note: Pt is a 73yo female, resident of [place], is admitted for chest pain. Pt lives in a house with her , Jesus. Pt's Primary Care Provider is ANDI Valadez and insurance is [facility]. Reviewed chart and discussed with multidisciplinary team pt's medical status and initial discharge needs. ED COOLER CONVEYOR LOADER met w/patient at bedside; introduced self and role. Patient was found in bed, alert and oriented, cooperative with assessment. Pt confirmed living situation and good support in . Pt expressed preference in discharging home after scheduled echocardiogram the following day if cleared. Pt has no hx of home health or SNF Rehab. Plan: Admission to acute care, anticipating dc home with spouse after echo when medically cleared. CM team will follow closely for coordination of discharge plans. DAVID Pascal Discharge Planning/Care Management CM Discharge Assessment Start: 06/03/24 18:25 Freq: Status: Active Protocol: Document 06/03/24 18:25 MW (Rec: 06/03/24 18:26 MW [id number]) Discharge Planning Assessment Assigned Rn Faculty MIGUELITO Vallejo DPOA/Assigned Designee Name Jesus Brannon, Spouse Contact Information [phone] Advance Directives? Yes: POLST Advance Directives on File Yes History Provided By Patient,Medical Record Has Patient been admitted in last 30 No days? Prior Living Arrangements House Household Members spouse Comment And dog, Mauro Type of transporation used prior to Drives own vehicle admit Independent with ADL's Yes Is patient alert and oriented? Yes Caregiver for Another No Discharge Plan Home Referrals Initiated None needed Review Status In Process Please Provide Date Initial DC 06/03/24 Assessment Was Performed Next Review Type Continued Stay Review
[2024-06-04 00:40] VITALS: BP 153/82; PULSE 60; RESP 16; TEMP 36.6; O2SAT 100
[2024-06-04 01:12] LABS: Creatine Kinase 58 U/L (30-135)
[2024-06-04 01:25] LABS: Troponin I < 0.012 ng/mL (0.01-0.034)
[2024-06-04 05:36] VITALS: BP 143/84; PULSE 63; RESP 17; TEMP 36.1; O2SAT 95
[2024-06-04 07:24] LABS: Troponin I < 0.012 ng/mL (0.01-0.034)
--- NOTE | 2024-06-04 08:34 | DI.NM.S_ITS ---
PROCEDURE: NM EXERCISE TREADMILL NON NUC COMPARISON: None INDICATIONS: Chest Pain FINDINGS: Rest ECG sinus rhythm. Hector protocol 8:37, maximum heart rate 160 bpm (107% peak predicted), peak blood pressure 194/78, 10.1 METS, SHEKHAR -50%. Exercise ECG sinus tachycardia, no ST segment changes or arrhythmia. The patient did not report exercise-induced chest discomfort. IMPRESSION: Low risk study. No evidence of exercise-induced ischemia or arrhythmia. Normal hemodynamic response. Excellent exercise capacity. Dictated by: Candis Lorenz D.O. on 06/04/2024 at 12:51 Approved by: Candis Lorenz D.O. on 06/04/2024 at 12:53
[2024-06-04] MEDS: PANTOPRAZOLE DR 40 MG TABLET PO (08:53)
[2024-06-04 09:00] VITALS: BP 167/96; PULSE 73; RESP 16; TEMP 36.2; O2SAT 96
[2024-06-04 13:00] VITALS: BP 144/85; PULSE 84; RESP 16; TEMP 36.2; O2SAT 97
--- NOTE | 2024-06-04 13:18 | PM.DS.1 ---
History of Present Illness History of Present Illness Date Patient Seen: 06/04/24 Time Patient Seen: 13:19 Chief complaint: Per patient feels like she's having a heart attack Narrative: Patient awoke this morning with what felt like scary painful heartburn seemed to worsen throughout the mornings are getting lightheaded and clammy so she had her bring her to the ER where initial cardiac workup was negative she does note her father has a history of heart attack she now feels a little bit better she does have elevated blood pressure without a history of hypertension she does say she has white coat syndrome she has not had a whole lot 8 today has been up to pee since getting to the ER at around noon quite concerned of this being possible cardiac. Discharge Providers Provider Date of admission: 06/03/24 15:34 Discharge Date: 06/04/24 Primary care physician: ANDI Valadez Discharge provider: Casper Oneil MD Summary Hospital Course Discharge Diagnosis: Chest pain Elevated blood pressure without diagnosis of hypertension Hospital Course: Chest pain. Patient had what appeared to be somewhat atypical chest pain. Burning sensation mid chest. But she was admitted for follow with troponins. Which we are negative. She had no other significant symptoms and otherwise felt well. Treadmill this morning was negative. Probably not cardiac. But a echo as an outpatient might not be a bad follow-up. Also may need some type of GI prophylaxis she is going to try Tums if she were to recur with the pain. She will follow-up with Dr. Lang next week. We will give her nitro just in case. She could try 1 and see if it helped. I would also like her to use Tums 1st to see what happens Elevated blood pressure without diagnosis of hypertension. Seems to be doing well now. He has not needed issues. We discussed this. She will see how things go and follow up with PMD next week and they can follow from there. Exam Vital Signs (past 8 hours): - 06/04/24 05:36 06/04/24 09:00 Temperature 96.9 F L 97.1 F L Pulse Rate 63 73 Respiratory Rate 17 16 Blood Pressure 143/84 H 167/96 H Pulse Oximetry 95 96 Oxygen Flow Rate 0 0 Oxygen Delivery Method Room Air Oxygen Flow Rate 0 Narrative Exam Narrative: Alert female smiling interactive no acute distress Lungs are clear heart is regular rate and rhythm Objective Labs 06/03/24 10:36 06/03/24 10:36 Labs: Laboratory Results - last 24 hr 06/03/24 06/04/24 06/04/24 12:56 00:40 06:40 Total Creatine Kinase 58 Troponin I < 0.012 < 0.012 < 0.012 PFSH Social History household members: spouse Smoking Status: Never smoker alcohol intake: current Discharge Assessment & Plan Assessment and Plan Assessment: Improved Plan of Treatment: Discharge home Discharge Plan Discharge Plan Patient Disposition: Home Discharge orders & Medications Prescriptions: New nitroglycerin 0.4 mg tablet, sublingual 0.4 mg sublingual Q5-15M PRN (Reason: chest pain) Qty: 30 0RF Rx Instructions: do not exceed 3 doses per episode Continued Tums 300 mg (750 mg) Tablet,Chewable 600 tab PO BEDTIME Follow up/Referrals: Darlyn Oneil ARNP [Primary Care Provider] - 06/09/24 (call for appointment with dr. lang) Discharge Health Status Multidrug resistant organism: No MDRO Diet/Activity/Treatments Diet: Diet as Tolerated Activity: As tolerated Skin/Wound/Dressing Care Report to your healthcare provider any signs of infection, such as:: increased pain Visit Report/Discharge Packet Stand Alone Forms: Patient Portal/API, Stroke Signs & Symptoms Discharge Data Primary Care Provider: Darlyn Oneil Attending Provider: Lawrence Galindo Date/Time: 06/03/24 15:34 Quality VTE Deep Vein Thrombosis/Pulmonary Embolism Present on Admission: No
--- NOTE | 2024-06-04 14:58 | PC.NURSE ---
Discharge: Pt feels ready to d/c to home. Had echo and stress test. MD discussed results with her. MD Wilson gave discharge paperwork. She has no c/p currently. She is tolerating diet w/out problems. Vds w/out diff. No pain anywhere. Discharge packet given and reviewed. Questions answered. Pt d/c to home via auto w/spouse.
== END 2024-06-04 14:45 | disposition home or self-care (01) ==
LOC: ED 15:34 → AC 15:35
PROVIDERS: Admitting Provider Family Medicine; Emergency Provider Emergency Medicine; PCP Internal Medicine; Referring Provider Emergency Medicine; Visit Provider Family Medicine
DX: R07.9 Chest pain, unspecified (principal); R42 Dizziness and giddiness; R61 Generalized hyperhidrosis; R03.0 Elevated blood-pressure reading, without diagnosis of hypertension
CPT/HCPCS: 36415; 71045; 80053; 82550; 83690; 83735; 83880; 84484; 85025; 85610; 85730; 93005; 93010; 93017; 99284; G0378

== ENCOUNTER → 2024-07-13 14:56 | Outpatient (CLI) | payer OTHER, SELFPAY ==
[2024-06-03 17:21] VITALS: BMI 29.0
--- NOTE | 2024-07-13 | DI.ECHO.S_ITS ---
[facility] +---------+ [facility] : : [id number] : : [place] : : [id number] : : Phone: [phone] Echocardiogram Report + + :Name: YADIEL GILLESPIE Study Date: 07/13/2024 Height: 61 in : :Hospital ReadingLocation: Weight: 140 lb : : Gender: Female BSA: 1.6 m2 : :: 1950 Age: 73 yrs BP: 154/99 mmHg: :Reason For Study: CHEST PAIN : :Ordering Physician: RYAN, : :COURTNEY Performed By: Huy Lewis : :Referring: COURTNEY DAVIS : + + Interpretation Summary 1) Normal left ventricular thickness, size, wall motion, and systolic function (EF 55-60%). 2) Normal right ventricular size and function. 3) No significant valvular abnormalities. 4) No prior Echo available for comparison. Procedure: A two-dimensional transthoracic echocardiogram with color flow and Doppler was performed. The study quality was technically good. There is no prior echocardiogram noted for this patient. The patient was in normal sinus rhythm during the exam. Left Ventricle: The left ventricle is normal in size. There is normal left ventricular wall thickness. There is no ventricular septal defect visualized. The ejection fraction is estimated to be 55-60%. There are no focal wall motion abnormalities. Diastolic parameters suggest a relaxation abnormality of the left ventricle, consistent with probable normal filling pressures. Right Ventricle: The right ventricle is normal in size and function. Atria: The left atrial size is normal. Right atrial size is normal. There is no Doppler evidence for an interatrial shunt. Mitral Valve: The mitral valve leaflets appear normal. There is no evidence of stenosis, fluttering, or prolapse. There is trace mitral regurgitation. Aortic Valve: The aortic valve is trileaflet. The aortic valve opens well. There is no aortic valve stenosis. No aortic regurgitation is present. Tricuspid Valve: The tricuspid valve leaflets are thin and pliable. There is a trace or physiologic amount of tricuspid regurgitation. Pulmonic Valve: The pulmonic valve leaflets are thin and pliable; valve motion is normal. There is trace pulmonic regurgitation. Great Vessels: The aortic root is normal size. The dimensions of the ascending aorta are normal. The pulmonary artery is normal size. The IVC is of normal diameter and collapses greater than 50% with a sniff. This suggests a low right atrial pressure of 3 mm Hg. Pericardium/ Pleura There is no pericardial effusion. There is no pleural effusion. MMode/2D Measurements & Calculations LVIDd: 4.4 cm LVOT diam: 2.0 cm LVIDs: 2.9 cm Ao root diam: 3.0 cm FS: 35.1 % asc Aorta Diam: 3.4 cm EPSS: 0.41 cm IVSd: 0.80 cm LVPWd: 0.80 cm LV kenny. diameter/BSA (cm/m^2): 2.7 LV sys. diameter/BSA (cm/m^2): 1.8 LA A2 area: 11.1 cm2 RA long axis: 4.1 cm LA A4 area: 12.5 cm2 RA area: 10.8 cm2 LA length (vol): 4.5 cm RA vol: 24.2 ml LA vol: 26.0 ml RA : 14.9 ml/m2 LA vol index: 16.0 ml/m2 IVC diam: 1.1 cm RVD1 (basal): 3.2 cm RVD2 (mid): 2.4 cm TAPSE: 2.6 cm Doppler Measurements & Calculations Ao V2 max: 144.7 cm/sec LVOT Max James: 99.3 cm/sec Ao V2 mean: 106.0 cm/sec LV V1 max P.9 mmHg Ao max P.4 mmHg LV V1 VTI: 20.9 cm Ao mean P.9 mmHg HENRI(I,D): 2.0 cm2 Ao V2 VTI: 31.5 cm HENRI(V,D): 2.1 cm2 sev ratio: 0.66 HENRI indexed to BSA (cm^2/m^2): 1.2 MV E max james: 66.2 cm/sec PA V2 max: 72.3 cm/sec MV A max james: 88.5 cm/sec PA V2 mean: 55.1 cm/sec MV E/A: 0.75 PA mean P.3 mmHg Med Peak E' James: 3.5 cm/sec PA pr(Accel): 32.8 mmHg E/E' med: 18.8 Lat Peak E' James: 3.6 cm/sec E/E' lat: 18.3 E/e' average: 18.5 MV dec time: 0.21 sec SV([facility]): 62.3 ml Reading Physician:05:12 PM
== END ==
LOC: ECHO 14:57
PROVIDERS: PCP Internal Medicine; Referring Provider Family Medicine; Visit Provider Family Medicine
DX: Z87.898 Personal history of other specified conditions (principal); R07.9 Chest pain, unspecified
CPT/HCPCS: 93306

== ENCOUNTER → 2024-08-24 14:28 | Outpatient (CLI) | payer OTHER, SELFPAY ==
[2024-06-03 17:21] VITALS: BMI 29.0
--- NOTE | 2024-08-24 14:33 | DI.MG.S_ITS ---
MM screening mammo BI: 08/24/2024. BI-RADS: 1 CLINICAL: 73-year old female for bilateral screening mammogram. Tyrer-Cuzick lifetime risk of 3.6%. No personal or first-degree family history of breast cancer. PRIOR EXAMS 07/31/2023, 07/25/2022, 07/17/2021, 04/05/2020, 03/17/2019, 06/09/2017, 02/22/2015. MAMMOGRAPHY TECHNIQUE: 2D and 3D (tomosynthesis) digital mammographic views obtained, with additional images as needed for full coverage. Current study was also evaluated with a Computer Aided Detection (CAD) system. DENSITY C. The breasts are heterogeneously dense, which may obscure small masses. MAMMOGRAPHY FINDINGS Bilateral: No suspicious mass, asymmetry, microcalcification, or other abnormality seen. No significant change from comparison. IMPRESSION: * No evidence of malignancy. RECOMMENDATIONS Bilateral * Annual screening mammography. OVERALL ASSESSMENT CATEGORY BI-RADS-1: Negative. The [employer] recommends annual screening mammography beginning at age 40 for women with average risk of breast cancer. ELECTRONICALLY SIGNED: Vikki Nogueiar M.D. on 08/27/2024 at 06:56:14 PM PT Interpreting Station ID: [id number]
== END ==
LOC: MAMMO 14:30
PROVIDERS: PCP Family Medicine; Referring Provider Internal Medicine; Visit Provider Internal Medicine
DX: Z12.31 Encounter for screening mammogram for malignant neoplasm of breast (principal); R92.333 Mammographic heterogeneous density, bilateral breasts
CPT/HCPCS: 77063; 77067